=== PATIENT | male | born 1995 | race Caucasian/White ===

== ENCOUNTER 2018-11-16 16:15 | Inpatient (IN) | payer BC ==
[2018-11-16] MEDS ORDERED: Colchicine 0.6 MG TAB ONE (16:53)
[2018-11-16] MEDS ORDERED: Ketorolac Tromethamine 30 MG/ML VIAL ONE (16:58)
[2018-11-16] MEDS ORDERED: Colchicine 0.6 MG TAB PO SCH (17:00)
[2018-11-16] MEDS ORDERED: Senokot S 8.6-50 MG TAB PO PRN (17:49)
[2018-11-16] MEDS ORDERED: Bisacodyl 10 MG SUPP PR PRN (17:49)
[2018-11-16] MEDS ORDERED: Guaifenesin DM 100-10/5 ML UDCUP PO PRN (17:49)
[2018-11-16] MEDS ORDERED: Acetaminophen 325 MG TAB PO PRN (17:49)
[2018-11-16 18:43] VITALS: BMI 16.0
[2018-11-16] MEDS: Ibuprofen 600 MG TAB PO SCH (20:15)
[2018-11-16] MEDS ORDERED: Ketorolac Tromethamine 30 MG/ML VIAL IVP PRN (20:18)
--- NOTE | 2018-11-16 21:00 | HP ---
REASON FOR ADMISSION: Acute pericarditis, chest pain. HISTORY OF PRESENTING ILLNESS: The patient gives history of having chest pain in the retrosternal and left-sided chest area. It started out last night. The chest pains are 7 to 8/10 in intensity. It is not related to breathing. It gets relieved by itself for a few hours, but then comes back on and lasts for hours, at least 2 to 3 hours, each episode. Has no complaints of cough or expectoration. No history of fever or flu-like illness. No diarrhea. Has not had any prior history of such chest pains in the past. No complaints of abdominal pain, nausea, or vomiting. Has no postnasal drainage. No prior history of cardiac issues. PAST MEDICAL AND SURGICAL HISTORY: History of acute pancreatitis in March of 2018. 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 His mother and his younger brother have had pancreatitis as well. No other surgical history. Depression. CURRENT MEDICATIONS: The patient is on sertraline 50 mg daily. ALLERGIES: NO KNOWN DRUG ALLERGIES. PERSONAL HISTORY: Uses alcohol on social occasions. Does not abuse drugs or smoke. Works in [employer]. FAMILY HISTORY: Mother has a history of pancreatitis and has a younger brother who has had history of pancreatitis. Father is healthy. Both parents are living. CODE STATUS: Full. REVIEW OF SYSTEMS: CONSTITUTIONAL: Negative for weight loss or gain, ability to conduct usual activities. SKIN: Negative for rash, itching. EYES: Negative for double vision, pain. ENT/MOUTH: Negative for nose bleeding, neck stiffness, pain, tenderness. CARDIOVASCULAR: Negative for palpitations, dyspnea on exertion, orthopnea. RESPIRATORY: Negative for shortness of breath, wheezing, cough, hemoptysis, fever or night sweats. GASTROINTESTINAL: Negative for poor appetite, abdominal pain, heartburn, nausea , vomiting, constipation, or diarrhea. GENITOURINARY: Negative for urgency, frequency, dysuria, nocturia. MUSCULOSKELETAL: Negative for pain, swelling. NEUROLOGIC/PSYCHIATRIC: Negative for anxiety, depression. ALLERGY/IMMUNOLOGIC: Negative for skin rash, bleeding tendency. PHYSICAL EXAMINATION: GENERAL: The patient is a 22-year-old male, who is currently not in any acute distress. VITAL SIGNS: Blood pressure 114/76, pulse 56 per minute, respiratory rate 18 per minute, temperature 97.7 degrees Fahrenheit, saturating 98% on room air. NECK: Supple. No elevated JVD. HEENT: Eyes; extraocular muscles intact. Pupils reacting to light. Oral cavity; mucous membranes are moist. No exudates or congestion. CARDIOVASCULAR SYSTEM: S1 and S2 heard. Regular rhythm. RESPIRATORY SYSTEM: Air entry 1+ bilateral. No rales or rhonchi. ABDOMEN: Soft. Bowel sounds heard. No tenderness, rigidity, or guarding. EXTREMITIES: No peripheral edema or calf tenderness. VASCULAR SYSTEM: Peripheral pulses 1+ bilateral. No ischemic ulcerations or gangrene. CENTRAL NERVOUS SYSTEM: No gross focal deficits noted. The patient is alert, awake, and oriented well. PSYCHIATRIC SYSTEM: The patient's mood is euthymic. No hallucinations or delusions. LABORATORY DATA: White count of 4.3, H and H of 16 and 50, platelet count 220, MCV 86 with 47% neutrophils. BUN 8, creatinine 0.8, serum bicarb 27. Troponin x2 negative. Liver enzymes within normal limits. BNP less than 10. Albumin 4.7. Lipase is 35. TSH 1.7. Chest x-ray done shows no acute cardiopulmonary abnormalities. EKG done shows ST elevation in almost all leads, suggestive of pericarditis. CLINICAL IMPRESSION AND PLAN: The patient will be admitted to telemetry for acute pericarditis with chest pain. Dr. Schmid is aware of the patient. He will be on colchicine 0.6 mg twice daily along with Motrin 600 mg three times daily. He will also be on Protonix 40 mg daily. Echo with 2D Doppler to rule out pericardial effusion will be obtained. Viral cultures including respiratory viral pathogen along with enterovirus PCR, viral cultures from nasopharyngeal swab will be obtained to rule out viral causes of pericarditis. We will continue to closely monitor him on telemetry. He is currently hemodynamically stable. Job ID: [id number] [facility]
--- NOTE | 2018-11-17 04:07 | CON ---
DATE OF CONSULTATION: 11/16/2018 REASON FOR CONSULTATION: Pericarditis. HISTORY OF PRESENT ILLNESS: Mr. Laws presented to the emergency room in [place] complaining of chest pain. The patient's pain was worse with a deep breath, much worse when he sat or so when he tried to lay down, also when he sits straight up it hurt. He went to the emergency room. They initially thought he has been having acute myocardial infarction, but later it was determined to be pericarditis. He has received some steroids and colchicine and is beginning to feel much better. He says there is just a minimal amount of pain of 0.5 on a scale of 10 now. He has had some more kind of pains in the past similar to this, but this is the worst episode he has ever had. PAST MEDICAL HISTORY: Otherwise negative. He has not had any cardiac history. Does not smoke or use tobacco. No drugs. FAMILY HISTORY: His mother has lupus. His father has symptoms similar to the patient's symptoms. The patient's father thinks that perhaps he has the same problem intermittently for many years. REVIEW OF SYSTEMS: CONSTITUTIONAL: No significant weight gain or loss. VISION: No changes. HEARING: No changes. PULMONARY: No cough or wheezing. GASTROINTESTINAL: No nausea, vomiting, or diarrhea. SKIN: No rashes. NEUROLOGIC: No unilateral weakness or numbness. PSYCHIATRIC: No unusual depression or anxiety. PHYSICAL EXAMINATION: GENERAL: This is a very pleasant, thin, 22-year-old man, in no distress. VITAL SIGNS: Blood pressure 119/69, pulse 60. HEENT: Eyes, sclerae are nonicteric. Mouth, mucous membranes moist. NECK: Supple. No lymphadenopathy. LUNGS: Clear. No wheezing. CARDIAC: Normal S1, normal S2. I do not hear murmur, rub, or gallop. ABDOMEN: Soft, nontender. EXTREMITIES: No clubbing or cyanosis or edema. SKIN: Warm and dry. PSYCHIATRIC: Mood and affect normal. NEUROLOGIC: Grossly normal. Pedal pulses present. PERTINENT LABORATORY DATA: The troponin levels are negative. EKG shows typical pericarditis with ST elevation in leads 2, 3, aVF, V3, V4, V5 and V6, all concave up ST elevation. ASSESSMENT: 1. Typical pericarditis, probably idiopathic. 2. Family history of lupus. PLAN: 1. Colchicine 0.6 mg twice a day for 3 months. 2. Ibuprofen for 2 weeks. 3. Echocardiogram. 4. Home tomorrow if he is feeling well. Job ID: [id number]
[2018-11-17 05:19] LABS: #Eosinphils 0.1 thou/uL (0.0-0.7); #Lymphocytes 2.2 thou/uL (1.20-3.40); #Monocytes 0.7 thou/uL (0.11-0.59); #Neutrophils 3.8 thou/uL (1.40-6.50); %Basophils 0.6 % (0.0-1.0); %Lymphocytes 32.3 % (21.0-51.0); %Monocytes 9.4 % (0.0-10.0); %Neutrophils 55.7 % (42.0-75.0); Hemoglobin 14.9 g/dL (14.0-18.0); Mean Corpuscular HGB CONC 33.4 g/dL (32.0-36.0); Mean Corpuscular Hemoglobin 29.6 pg (27.0-31.0); Mean Corpuscular Volume 88.6 fL (78.0-98.0); Platelet Count 202 thou/uL (130-400); RBC Distribution Width 12.3 % (11.5-14.5); Red Blood Cell (RBC) Count 5.05 mill/uL (4.70-6.10); White Blood Cell (WBC) Count 6.9 thou/uL (4.8-10.8)
[2018-11-17 05:33] LABS: Anion Gap 11 mmol/L (10-20); BUN (Urea Nitrogen) 13 mg/dL (8.9-20.6); Calc. Creatinine Clearance 96 mL/min (70-130); Calcium 9.7 mg/dL (7.8-10.44); Carbon Dioxide 25 mmol/L (22-29); Chloride 106 mmol/L (98-107); Cholesterol 125 mg/dl (< 200 Desired); Estimated GFR-MDRD Greater than 90; Glucose 124 mg/dL (70-105); HDL Cholesterol 41 mg/dL (>60 Neg Risk); LDL Cholesterol, Calculated 65 mg/dL; Potassium 3.5 mmol/L (3.5-5.1); Sodium 138 mmol/L (136-145); Triglycerides 96 mg/dL (Less than 150)
[2018-11-17] MEDS ORDERED: Enoxaparin Sodium 30 MG/0.3 ML SYRINGE SC SCH (09:00)
[2018-11-17] MEDS ORDERED: Colchicine 0.6 MG TAB PO SCH (09:00)
[2018-11-17] MEDS: Ibuprofen 600 MG TAB PO SCH ×2 (09:46→14:57)
--- NOTE | 2018-11-17 10:52 | PDOC.HOSPP ---
- Subjective Subjective: no chest pain or sob this am mother at bedside is ambulating to restroom and back - Objective Vital Signs & Weight: Vital Signs (12 hours) Temp Pulse Resp BP Pulse Ox 11/17/18 07:20 97.7 F 62 16 93/52 L 95 11/17/18 04:19 97.9 F 65 17 100/54 L 97 Weight Weight 102 lb 1.6 oz Result Diagrams: 11/17/18 04:46 11/17/18 04:45 ROS - Review of Systems All systems: All other ROS were reviewed and found negative. - Medication Medications: Active Medications Generic Name Dose Route Start Last Admin Trade Name Freq PRN Reason Stop Dose Admin Colchicine 0.6 mg 11/17/18 09:00 11/17/18 09:45 Colchicine PO 0.6 mg BID VINNIE Administration Enoxaparin Sodium 30 mg 11/17/18 09:00 11/17/18 09:46 Lovenox SC 30 mg 0900 VINNIE Administration Ibuprofen 600 mg 11/16/18 21:00 11/17/18 09:46 Motrin PO 600 mg TID VINNIE Administration Pantoprazole Sodium 40 mg 11/17/18 09:00 11/17/18 09:45 Protonix PO 40 mg DAILY VINNIE Administration - Exam NAD, awake alert Eye: PERRL, anicteric sclera ENT: no oropharyngeal lesions, moist mucosa Neck: supple, no JVD Heart: RRR, no murmur Respiratory: no wheezes, no rales Gastrointestinal: soft, non-tender, non-distended, normal bowel sounds Extremities: no clubbing, no edema Neurological: CN's grossly intact, no focal deficits Psychiatric: normal affect, A&O x 3 Hosp A/P (1) Acute pericarditis Code(s): I30.9 - ACUTE PERICARDITIS, UNSPECIFIED Status: Acute Qualifiers: Pericarditis type: unspecified type Qualified Code(s): I30.9 - Acute pericarditis, unspecified (2) Depression Code(s): F32.9 - MAJOR DEPRESSIVE DISORDER, SINGLE EPISODE, UNSPECIFIED Status : Chronic Qualifiers: Depression Type: unspecified Qualified Code(s): F32.9 - Major depressive disorder, single episode, unspecified - Plan chest pain has resolved on colchicine, motrin continue home dose of sertraline await echo results, shant with reflex, resp viral pcr is -ve, viral swab is pending strep throat swab is pending. hemostable No h/o tick/flea bites, no h/o having seen a target lesion on his body
[2018-11-17 14:59] VITALS: BP 101/59; TEMP 98.7
--- NOTE | 2018-11-18 14:25 | DIS ---
DATE OF ADMISSION: 11/16/2018 DATE OF DISCHARGE: 11/17/2018 DISCHARGE DISPOSITION: To home. PRIMARY DISCHARGE DIAGNOSES: 1. Acute pericarditis. 2. History of depression. PROCEDURES DONE DURING HOSPITALIZATION: Blood cultures x2, no growth. Respiratory virus panel PCR was negative. Group A strep throat culture is negative. Rapid antigen testing for group A strep was negative. LABORATORY DATA: White count of 6, H and H 14 and 44, platelet count 202, MCV 88 with 55% neutrophils, 32% lymphocytes. BUN 13, creatinine 0.7. Total cholesterol 125, triglycerides 96, LDL 65. Troponin was negative. DISCHARGE MEDICATIONS: 1. Colchicine 0.6 mg p.o. twice daily for 30 days. 2. Motrin 400 mg p.o. twice daily for 1 week. 3. Pantoprazole 40 mg p.o. daily for a month. 4. Sertraline 50 mg p.o. daily. ALLERGIES: NO KNOWN DRUG ALLERGIES. INPATIENT CONSULT: Dr. Schmid for Cardiology. BRIEF COURSE DURING HOSPITALIZATION: The patient initially got admitted with complaints of chest pain. Initial EKG showed a generalized elevation of ST segments suggestive of acute pericarditis with chest pain. The patient has had an echo with 2D Doppler done per Dr. Schmid. The official results are pending. Echo did not reveal any pericardial effusion per Dr. Schmid. His chest pain has completely resolved with him being placed on colchicine and Motrin. He needs to continue the regimen as prescribed. He needs follow up with Dr. Schmid in 2 to 3 weeks and primary care physician in 1 week. The patient has had CY with reflex testing done. The official results are pending at present. Mother has h/o of lupus. He is otherwise hemodynamically stable ambulating and eating well. Please see a [id number] documentation for the day of discharge on [facility]. Job ID: [id number] [facility]
== END 2018-11-17 15:43 | disposition home or self-care (01) | DRG 316 ==
LOC: ERS 16:15 → 2NO 17:00
PROVIDERS: ADMIT Internal Medicine; ATTEND Internal Medicine
DX: I30.9 Acute pericarditis, unspecified (principal); F32.9 Major depressive disorder, single episode, unspecified; Z87.19 Personal history of other diseases of the digestive system
CPT/HCPCS: 36415; 80048; 80061; 85025; 86038; 86225; 87040; 87081; 87252; 87430; 87498; 87633; 93005; 93010; 93306; J1650; J1885